=== PATIENT | male | born 1965 | race Caucasian/White ===

== ENCOUNTER 2017-10-18 13:54 | Emergency (ER) | payer OTHER ==
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
[2017-10-18 14:54] VITALS: BP 123/79
== END 2017-10-18 14:56 | disposition home or self-care (01) ==
LOC: ED 13:54
DX: L98.0 Pyogenic granuloma (principal)
CPT/HCPCS: 99282; 99283